=== PATIENT | male | born 1980 | race Caucasian/White ===

== ENCOUNTER 2021-01-16 13:14 | Emergency (ER) | payer SELFPAY ==
[~2021-01-16] VITALS: Ht 177.8 cm; Wt 78.0 kg
[2021-01-16] MEDS ORDERED: SODIUM CHLORIDE 0.9% 1,000 ML IV ONE (14:00)
[2021-01-16 14:29] LABS: BASOPHILS % 0.4 % (0.0-2.0); HEMATOCRIT. 44.5 % (42.0-52.0); HEMOGLOBIN. 14.5 g/dL (14.0-18.0); LYMPHOCYTES % 31.2 % (20.0-50.0); MEAN CORPUSCULAR HEMOGLOBIN 29.6 pg (28.0-32.0); MEAN CORPUSCULAR VOLUME 90.9 fL (80.0-94.0); MONOCYTES % 10.3 % (2.0-8.0); NEUTROPHILS % 56.1 % (40.0-76.0); PLATELET 278 x1000/uL (130-400); RED CELL DISTRIBUTION WIDTH 13.3 % (11.6-14.6)
[2021-01-16 14:48] LABS: CHLORIDE 105 mEq/L (98-107)
[2021-01-16 14:52] LABS: ETHANOL BLOOD < 10 mg/dL
[2021-01-16 17:45] VITALS: BP 118/78
== END 2021-01-16 19:23 | disposition home or self-care (01) ==
LOC: EDBD 13:23 → ER 13:23
DX: T46.7X1A Poisoning by peripheral vasodilators, accidental (unintentional), initial encounter (principal); Y92.9 Unspecified place or not applicable
CPT/HCPCS: 36415; 71045; 80053; 80307; 80320; 80329; 84484; 85025; 96360; 99284; J7030; G0480